=== PATIENT | male | born 1950 | race Caucasian/White ===

== ENCOUNTER 2021-10-22 04:49 | Emergency (ER) | payer OTHER ==
[2021-10-22 05:11] LABS: #Eosinphils 0.1 10x3/uL (0.0-0.5); #Monocytes 0.5 10x3/uL (0.0-1.1); #Neutrophils 5.8 10x3/uL (1.5-8.4); %Basophils 0.5 % (0.0-2.0); %Eosinophils 1.6 % (0.0-6.0); %Lymphocytes 13.2 % (18.0-47.0); %Monocytes 6.6 % (0.0-10.0); %Neutrophils 77.7 % (40.0-75.0); Hemoglobin 9.5 g/dL (13.5-17.5); Mean Corpuscular HGB CONC 32.9 g/dL (32.0-36.0); Mean Corpuscular Volume 88.1 fl (81.2-95.1); Platelet Count 194 10x3/uL (150-450); RBC Distribution Width 17.2 % (11.5-14.5); Red Blood Cell (RBC) Count 3.28 10x6/uL (4.32-5.72); White Blood Cell (WBC) Count 7.4 10x3/uL (3.5-10.5)
[2021-10-22] MEDS ORDERED: Ipratropium Bromide 2.5 ml Neb ONE (05:24)
[2021-10-22] MEDS ORDERED: Albuterol Sulfate 2.5 mg/3 ml Neb ONE (05:24)
[2021-10-22 05:40] LABS: SARS-CoV-2 NAA Rapid Test Not Detected (NotDetected)
[2021-10-22 05:42] LABS: ALT (SGPT) 17 U/L (8-55); AST (SGOT) 22 U/L (5-34); Alkaline Phosphatase 60 U/L (40-110); Anion Gap 15 mmol/L (10-20); BUN (Urea Nitrogen) 14 mg/dL (8.4-25.7); Bilirubin, Total 0.3 mg/dL (0.2-1.2); Calc. Creatinine Clearance 0 mL/min (70-130); Calcium 7.4 mg/dL (7.8-10.44); Carbon Dioxide 24 mmol/L (23-31); Chloride 109 mmol/L (98-107); Estimated GFR 61; Globulin 2.5 g/dL (2.4-3.5); Glucose 107 mg/dL (83-110); Protein, Total 5.5 g/dL (5.8-8.1); Sodium 144 mmol/L (136-145)
[2021-10-22] MEDS ORDERED: Furosemide 40 MG/4 ML VIAL ONE (06:36)
== END 2021-10-22 10:53 | disposition short-term general hospital (02) ==
LOC: CSHERS 04:49 → EEVIPCON 04:49 → CSHERS 10:53
DX: I11.0 Hypertensive heart disease with heart failure (principal); I50.9 Heart failure, unspecified; R09.02 Hypoxemia; E11.40 Type 2 diabetes mellitus with diabetic neuropathy, unspecified; K21.9 Gastro-esophageal reflux disease without esophagitis; Z87.891 Personal history of nicotine dependence; E03.9 Hypothyroidism, unspecified; I25.2 Old myocardial infarction; Z20.822 Contact with and (suspected) exposure to COVID-19
CPT/HCPCS: 71045; 80053; 83880; 84484; 85025; 93005; 94645; 94760; 96374; J1940; J7611; U0002

== ENCOUNTER 2022-01-21 00:58 | Emergency (ER) | payer OTHER ==
[2022-01-21] MEDS ORDERED: Morphine 4 MG/ML VIAL ONE (01:32)
[2022-01-21] MEDS ORDERED: Aspirin 325 MG TAB ONE (01:33)
[2022-01-21] MEDS ORDERED: Furosemide 40 MG/4 ML VIAL ONE (01:33)
[2022-01-21 02:45] LABS: #Monocytes 0.2 10x3/uL (0.0-1.1); #Neutrophils 6.2 10x3/uL (1.5-8.4); %Basophils 0.3 % (0.0-2.0); %Eosinophils 0.1 % (0.0-6.0); %Lymphocytes 6.5 % (18.0-47.0); %Monocytes 3.2 % (0.0-10.0); %Neutrophils 89.3 % (40.0-75.0); Hemoglobin 9.3 g/dL (13.5-17.5); Mean Corpuscular HGB CONC 32.3 g/dL (32.0-36.0); Mean Corpuscular Hemoglobin 29.1 pg (27.0-33.0); Mean Platelet Volume 10.3 fl (7.4-10.4); Platelet Count 266 10x3/uL (150-450)
[2022-01-21 02:56] LABS: ALT (SGPT) 52 U/L (8-55); AST (SGOT) 32 U/L (5-34); Albumin 3.8 g/dL (3.4-4.8); Alkaline Phosphatase 84 U/L (40-110); Anion Gap 14 mmol/L (10-20); BUN (Urea Nitrogen) 19 mg/dL (8.4-25.7); Bilirubin, Total 0.4 mg/dL (0.2-1.2); Calc. Creatinine Clearance 0 mL/min (70-130); Calcium 8.7 mg/dL (7.8-10.44); Carbon Dioxide 22 mmol/L (23-31); Chloride 106 mmol/L (98-107); Estimated GFR 63; Globulin 3.1 g/dL (2.4-3.5); Glucose 132 mg/dL (83-110); Lipase 13 U/L (8-78); Magnesium 1.7 mg/dL (1.6-2.6); Potassium 4.2 mmol/L (3.5-5.1); Protein, Total 6.9 g/dL (5.8-8.1); Sodium 138 mmol/L (136-145)
[2022-01-21 02:57] LABS: PTT 26.8 sec (22.0-33.0); Prothrombin Time 11.2 sec (9.5-12.1)
[2022-01-21 03:16] LABS: Bilirubin Neg (Negative); Blood, Urine Negative (Negative); Clarity Clear (Clear); Glucose, Urine (Dipstick) Normal (Negative); Ketone, Urine Negative (Negative); Leukocyte Negative (Negative); Nitrite Negative (Negative); Protein, Urine (Dipstick) Negative (Neg-Trace); Specific Gravity, Urine 1.005 (1.005-1.030); Urobilinogen Normal mg/dL (Less than 2)
[2022-01-21 03:55] LABS: SARS-CoV-2 NAA Rapid Test Not Detected (NotDetected)
[2022-01-21] MEDS ORDERED: Azithromycin 500 MG VIAL ONE (05:54)
[2022-01-21] MEDS ORDERED: cefTRIAXone\\ROCEPHIN 1 GM VIAL ONE (05:54)
== END 2022-01-21 10:36 | disposition short-term general hospital (02) ==
LOC: CSHERS 00:58
DX: J18.9 Pneumonia, unspecified organism (principal); J96.01 Acute respiratory failure with hypoxia; I11.0 Hypertensive heart disease with heart failure; E11.40 Type 2 diabetes mellitus with diabetic neuropathy, unspecified; I50.9 Heart failure, unspecified; E03.9 Hypothyroidism, unspecified; I25.2 Old myocardial infarction; Z87.891 Personal history of nicotine dependence; Z95.1 Presence of aortocoronary bypass graft; Z20.822 Contact with and (suspected) exposure to COVID-19; Z79.899 Other long term (current) drug therapy
CPT/HCPCS: 36415; 71045; 80053; 81003; 83690; 83735; 83880; 84443; 84484; 85025; 85610; 85730; 87040; 87086; 93005; 94640; 94660; 96365; 96375; J0456; J0696; J1940; J2270

== ENCOUNTER 2022-05-10 07:32 | Emergency (ER) | payer OTHER ==
[2022-05-10] MEDS ORDERED: Ipratropium Bromide 2.5 ml Neb ONE (08:09)
[2022-05-10 08:14] LABS: #Monocytes 0.3 10x3/uL (0.0-1.1); #Neutrophils 4.7 10x3/uL (1.5-8.4); %Basophils 0.3 % (0.0-2.0); %Eosinophils 0.7 % (0.0-6.0); %Lymphocytes 11.8 % (18.0-47.0); %Neutrophils 81.7 % (40.0-75.0); Hemoglobin 10.6 g/dL (13.5-17.5); Mean Corpuscular Hemoglobin 27.6 pg (27.0-33.0); Mean Corpuscular Volume 83.6 fl (81.2-95.1); Mean Platelet Volume 11.5 fl (7.4-10.4); Platelet Count 203 10x3/uL (150-450); RBC Distribution Width 16.3 % (11.5-14.5); Red Blood Cell (RBC) Count 3.84 10x6/uL (4.32-5.72); White Blood Cell (WBC) Count 5.8 10x3/uL (3.5-10.5)
[2022-05-10 08:26] LABS: ALT (SGPT) 20 U/L (8-55); AST (SGOT) 17 U/L (5-34); Albumin 3.5 g/dL (3.4-4.8); Alkaline Phosphatase 59 U/L (40-110); Anion Gap 15 mmol/L (10-20); BUN (Urea Nitrogen) 13 mg/dL (8.4-25.7); Bilirubin, Total 0.7 mg/dL (0.2-1.2); Calc. Creatinine Clearance 0 mL/min (70-130); Calcium 8.8 mg/dL (7.8-10.44); Carbon Dioxide 26 mmol/L (23-31); Chloride 102 mmol/L (98-107); Estimated GFR 70; Globulin 3.1 g/dL (2.4-3.5); Glucose 154 mg/dL (83-110); Potassium 2.9 mmol/L (3.5-5.1); Protein, Total 6.6 g/dL (5.8-8.1); Sodium 140 mmol/L (136-145)
[2022-05-10 08:28] LABS: SARS-CoV-2 NAA Rapid Test Not Detected (NotDetected)
[2022-05-10] MEDS ORDERED: Potassium Chloride 20 MEQ TAB ONE (08:53)
[2022-05-10] MEDS ORDERED: Furosemide 40 MG/4 ML VIAL ONE ×2 (09:28)
== END 2022-05-10 12:48 | disposition short-term general hospital (02) ==
LOC: CSHERS 07:32
DX: I11.0 Hypertensive heart disease with heart failure (principal); I50.9 Heart failure, unspecified; J44.9 Chronic obstructive pulmonary disease, unspecified; I25.10 Atherosclerotic heart disease of native coronary artery without angina pectoris; E87.70 Fluid overload, unspecified; E11.40 Type 2 diabetes mellitus with diabetic neuropathy, unspecified; E03.9 Hypothyroidism, unspecified; K21.9 Gastro-esophageal reflux disease without esophagitis; Z20.822 Contact with and (suspected) exposure to COVID-19; Z87.891 Personal history of nicotine dependence
CPT/HCPCS: 71045; 80053; 83880; 84484; 85025; 93005; 94644; 94760; 96374; J1940; J7611